=== PATIENT | male | born 1965 | race Caucasian/White ===

== ENCOUNTER 2025-09-15 15:46 | Inpatient (IN) | payer BC ==
[~2025-09-15] VITALS: Ht 180.3 cm; Wt 62.4 kg
[2025-09-15] MEDS ORDERED: 0.9% SODIUM CHLORIDE 10 ML SYRINGE IVP PRN (17:45)
[2025-09-15] MEDS: SODIUM CHLORIDE 0.9% 1,850 ML IV ONE (17:55)
[2025-09-15] MEDS: CefTRIAXone 1 GM/DEXTROSE 50 ML IV ONE ×2 (17:58→18:19)
[2025-09-15 18:03] LABS: PLATELET COUNT (AUTO) 193 K/uL (150-450); RED BLOOD CELL COUNT(AUTO) 3.91 MIL/uL (4.50-5.90); RED CELL DISTRIBUTION WIDTH 13.0 % (11.5-14.5); WHITE BLOOD COUNT (AUTO) 5.5 K/uL (4.5-11.0)
[2025-09-15 18:06] LABS: CALCIUM, TOTAL 8.1 mg/dL (8.8-10.5); CREATININE 0.73 mg/dL (0.60-1.30); GLOMERULAR FILTR. RATE CALC > 60 mL/min (>60); GLUCOSE,RANDOM 89 mg/dL (70-110); UREA NITROGEN, BLOOD 11 mg/dL (7-18)
[2025-09-15 18:14] LABS: TROPONIN I-HIGH SENSITIVITY 7 ng/L (<76)
[2025-09-15 18:15] LABS: LACTIC ACID 0.7 mmol/L (0.4-2.0)
[2025-09-15 18:17] LABS: SODIUM SERUM 121 mmol/L (136-145)
[2025-09-15] MEDS: ACETAMINOPHEN 500 MG TABLET PO ONE (18:19)
[2025-09-15 18:59] LABS: APPEARANCE,URINE CLEAR (CLEAR); GLUCOSE, URINE (UA) NEGATIVE (NEGATIVE); LEUKOCYTE ESTERASE ,URINE NEGATIVE (NEGATIVE); NITRATE,URINE NEGATIVE (NEGATIVE); OCCULT BLOOD,URINE NEGATIVE (NEGATIVE); SPECIFIC GRAVITIY, URINE 1.010 (1.003-1.030)
[2025-09-15 20:42] LABS: COVID AG,FIA SOURCE NASAL SWAB
[2025-09-15 21:04] LABS: INFLUENZA TYPE A NEGATIVE FOR TYPE A (NEGATIVE); INFLUENZA TYPE B NEGATIVE FOR TYPE B (NEGATIVE)
[2025-09-15 21:21] LABS: SARS-COV2 (COVID) ANTIGEN,FIA Positive (Negative)
[2025-09-15] MEDS ORDERED: ACETAMINOPHEN 325 MG TABLET PO PRN (22:45)
[2025-09-15] MEDS ORDERED: ALBUTEROL SULFATE 2.5 MG/0.5 ML NEB SOLUTION NEB PRN (22:45)
[2025-09-15] MEDS ORDERED: BISACODYL 10 MG RECTAL RECTAL SUPPOSITORY PR PRN (22:45)
[2025-09-15] MEDS ORDERED: ONDANSETRON HCL 4 MG/2 ML VIAL IVP PRN (22:45)
[2025-09-15] MEDS ORDERED: MAGNESIUM HYDROXIDE SUSPENSION 30 ML UDCUP PO PRN (22:45)
[2025-09-15] MEDS ORDERED: MORPHINE SULFATE 4 MG/ML SYRINGE IVP PRN (22:45)
[2025-09-15] MEDS ORDERED: IPRATROPIUM BROMIDE 0.5 MG/2.5 ML NEB SOLUTION NEB PRN (22:45)
[2025-09-15] MEDS: AZITHROMYCIN 500 MG/NS 250 ML IV SCH (23:04)
[2025-09-16] VITALS (10 sets, daily range): BP systolic 93–129; BP diastolic 72–89; PULSE 82–97; RESP 14–20; TEMP 97.5–98.2; O2SAT 96–99
[2025-09-16] MEDS: HEPARIN SODIUM,PORCINE 5,000 UNITS/ML VIAL SQ SCH
[2025-09-16] MEDS ORDERED: SODIUM CHLORIDE 0.9% 500 ML IV ONE (00:30)
[2025-09-16] MEDS: ZOLPIDEM TARTRATE 5 MG TABLET PO PRN (00:36)
[2025-09-16] MEDS: HYDROCODONE/ACETAMINOPHEN 5-325 MG TABLET PO PRN (00:37)
[2025-09-16] MEDS ORDERED: HYDR-5256 PO (03:45)
[2025-09-16 07:53] LABS: PLATELET COUNT (AUTO) 185 K/uL (150-450); RED BLOOD CELL COUNT(AUTO) 3.91 MIL/uL (4.50-5.90); RED CELL DISTRIBUTION WIDTH 13.1 % (11.5-14.5); WHITE BLOOD COUNT (AUTO) 3.5 K/uL (4.5-11.0)
[2025-09-16 08:04] LABS: CALCIUM, TOTAL 8.1 mg/dL (8.8-10.5); CREATININE 0.70 mg/dL (0.60-1.30); GLOMERULAR FILTR. RATE CALC > 60 mL/min (>60); GLUCOSE,RANDOM 108 mg/dL (70-110); SODIUM SERUM 129 mmol/L (136-145); UREA NITROGEN, BLOOD 9 mg/dL (7-18)
[2025-09-16 08:40] LABS: RBC MORPHOLOGY COMMENT NORMAL RBC MORPH
[2025-09-16] MEDS: GuaiFENesin SR 600 MG ER TABLET PO SCH (09:26)
[2025-09-16] MEDS: DOCUSATE SODIUM 100 MG CAPSULE PO SCH (09:27)
[2025-09-16] MEDS: PANTOPRAZOLE SODIUM 40 MG DR TABLET PO SCH (09:27)
[2025-09-16] MEDS: BENZONATATE 100 MG CAPSULE PO SCH (09:27)
[2025-09-16] MEDS: IPRATROPIUM BROMIDE 0.5 MG/2.5 ML NEB SOLUTION NEB SCH (12:27)
[2025-09-16] MEDS: ALBUTEROL SULFATE 2.5 MG/0.5 ML NEB SOLUTION NEB SCH (12:27)
[2025-09-16] MEDS: CefTRIAXone 1 GM/DEXTROSE 50 ML IV SCH (16:54)
[2025-09-17] VITALS (7 sets, daily range): BP systolic 114–126; BP diastolic 84–97; PULSE 78–88; RESP 16–18; TEMP 97.5–97.9; O2SAT 97–100
[2025-09-17 06:40] LABS: PLATELET COUNT (AUTO) 191 K/uL (150-450); RED BLOOD CELL COUNT(AUTO) 4.07 MIL/uL (4.50-5.90); RED CELL DISTRIBUTION WIDTH 13.1 % (11.5-14.5); WHITE BLOOD COUNT (AUTO) 7.3 K/uL (4.5-11.0)
[2025-09-17 06:45] LABS: CALCIUM, TOTAL 8.3 mg/dL (8.8-10.5); CREATININE 0.66 mg/dL (0.60-1.30); GLOMERULAR FILTR. RATE CALC > 60 mL/min (>60); GLUCOSE,RANDOM 121 mg/dL (70-110); SODIUM SERUM 133 mmol/L (136-145); UREA NITROGEN, BLOOD 10 mg/dL (7-18)
[2025-09-17 07:19] LABS: RBC MORPHOLOGY COMMENT NORMAL RBC MORPH
[2025-09-17] MEDS ORDERED: CEPH-558 PO (10:47)
[2025-09-17] MEDS ORDERED: AZIT-167 PO (10:47)
[2025-09-17 16:13] LABS: COVID AG,FIA SOURCE NASAL SWAB
[2025-09-17 16:34] LABS: SARS-COV2 (COVID) ANTIGEN,FIA Negative (Negative)
== END 2025-09-17 18:00 | disposition home or self-care (01) | DRG 871 ==
LOC: EMS 15:48 → EDH 22:39 → 5N 09-16 00:12
PROVIDERS: ADMIT Internal Medicine; ATTEND Internal Medicine
DX: A41.89 Other specified sepsis (principal); E43 Unspecified severe protein-calorie malnutrition; U07.1 COVID-19; D63.8 Anemia in other chronic diseases classified elsewhere; F20.9 Schizophrenia, unspecified; E87.1 Hypo-osmolality and hyponatremia; Z68.1 Body mass index [BMI] 19.9 or less, adult; F17.200 Nicotine dependence, unspecified, uncomplicated; Z79.899 Other long term (current) drug therapy
CPT/HCPCS: 71045; 80048; 81003; 83605; 83880; 83930; 83935; 84145; 84295; 84300; 84443; 84484; 85025; 85610; 87040; 87804; 93005; 94640; 94760; 99285; G0378; J0456; J0696; J1644; J2919; J7040; 36415-L1; 36415-TC; J7613